=== PATIENT | male | born 1955 | race Two or more races ===

== ENCOUNTER 2021-09-30 05:21 | Inpatient (IN) | payer MEDICAID ==
[2021-09-23 16:46] LABS: PRE OP PROTIME 10.2 SECONDS (9.0-12.0)
[2021-09-23 16:50] LABS: ALBUMIN 3.8 G/DL (3.4-5.0); ALKALINE PHOSPHATASE 130 IU/L (46-116); BASOPHILS % (AUTO) 0.3 % (0-1); BLOOD UREA NITROGEN 15 MG/DL (7-18); BUN/CREATININE RATIO 14.9 (5.4-32.0); CALCIUM 8.9 MG/DL (8.5-10.1); CHLORIDE 105 MMOL/L (99-107); CREATININE 1.01 MG/DL (0.60-1.10); EOSINOPHILS # (AUTO) 0.2 X10'3 (0-0.9); EOSINOPHILS % (AUTO) 3.5 % (0-6); LYMPHOCYTES # (AUTO) 1.9 X10'3 (1.1-4.8); LYMPHOCYTES % (AUTO) 34.9 % (21-51); MEAN CORPUSCULAR HEMOGLOBIN 26.6 PG (27.0-31.0); MEAN CORPUSCULAR HGB CONC 34.1 g/dL (33.0-36.5); MEAN PLATELET VOLUME 7.2 FL (7.4-10.4); MONOCYTES # (AUTO) 0.5 X10'3 (0-0.9); MONOCYTES % (AUTO) 9.4 % (2-12); NEUTROPHILS # (AUTO) 2.8 X10'3 (1.8-7.7); NEUTROPHILS % (AUTO) 51.9 % (42-75); PRE OP ALT 26 U/L (30-65); PRE OP ANION GAP 10 (8-16); PRE OP AST 16 U/L (10-37); PRE OP BILIRUB, TOTAL 0.4 MG/DL (0.0-1.0); PRE OP GLUCOSE 94 MG/DL (70-104); PRE OP HEMATOCRIT 43.3 % (42.0-52.0); PRE OP HEMOGLOBIN 14.8 g/dL (14.0-17.9); PRE OP PLATELET COUNT 221 X10'3 (140-440); PRE OP POTASSIUM 4.4 MMOL/L (3.4-5.1); PRE OP SODIUM 142 MMOL/L (135-145); RED BLOOD COUNT 5.55 X10'6 (4.70-6.10); TOTAL CARBON DIOXIDE 26.8 MMOL/L (24-32); TOTAL PROTEIN 7.6 G/DL (6.4-8.2); eGFR 73 ML/MIN
[2021-09-23 17:10] LABS: HEMOGLOBIN A1C 7.1 % (4.5-6.2)
[~2021-09-30] VITALS: Ht 177.8 cm; Wt 81.6 kg
[2021-09-30] VITALS (17 sets, daily range): BP systolic 115–148; BP diastolic 59–84
[~2021-09-30 05:21] MED LIST: ATOR20TA66 PO; CHOL200074 PO; FLUO10TA PO; LORA10TA7 PO; METF-1203 PO; METO50TA17 PO; ringers solution, lacted 1,000 ML IV SCH
[2021-09-30] MEDS ORDERED: metroNIDAZOLE-Flagyl 500mg/NS 100ml IVPB IV ONE (05:30)
[2021-09-30] MEDS ORDERED: heparin, porcine 5000 units/ml vial SQ ONE (05:30)
[2021-09-30] MEDS ORDERED: DOCUMENT DATE & TIME OF BETA-BLOCKER PO ONE (05:30)
[2021-09-30] MEDS ORDERED: famotidine 20mg tablet PO ONE (05:30)
[2021-09-30] MEDS ORDERED: cefoxitin sod inj 2,000 MG in normal saline 100ml IV soln 100 ML IV ONE (05:30)
[2021-09-30] MEDS ORDERED: BUPIVAcaine/PF 2.5 mg/ml (0.25%) 30ml vial ONE (06:41)
[2021-09-30] MEDS ORDERED: LIDOCAINE 1%/EPI 1:100,000 inj. 10 ML multi-dose vial ONE (06:41)
--- NOTE | 2021-09-30 06:58 | NUR ---
DR. NAJERA NOTIFIED PATIENT'S BG 202 PRE-OPERATIVELY IN PAS UNIT, RECEIVED AN TELEPHONE ORDER FOR INSULIN 5 UNITS SQ. PHARMACY CALLED AND THE MEDICATION ORDERED. Addendum: 09/30/21 at 0743 by Karla Collier RN Amended: Links added.
[2021-09-30] MEDS ORDERED: insulin regular, human 10 units/0.1 ml syringe SQ ONE (07:00)
--- NOTE | 2021-09-30 07:17 | NUR ---
ADMINISTERED INSULIN 5UNITS ON RIGHT ABDOMEN SUBCUTANEOUSLY, ATTEMPTED TO CO-SIGN BY STANFORD GALLARDO BEFORE ADMINISTRATION, BUT THE COMPUTER DID NOT TAKE THE CO-SIGN WITH MULTIPLE ATTEMPTS. DR. NAJERA NOTIFIED AND AWARE THAT THE INSULIN 5 UNITS ADMINISTERED IN PAS UNIT.
[2021-09-30] MEDS ORDERED: BUPIVACAINE liposomal/PF 13.3 MG/ML vial IM ONE (07:30)
[2021-09-30] MEDS ORDERED: midazolam 1 mg/ML 2ml injection ONE (07:31)
[2021-09-30] MEDS ORDERED: fentaNYL /PF 50mcg/ml 5ml ampule ONE (07:31)
[2021-09-30] MEDS ORDERED: LIDOcaine 2% (20mg/ml) 5ml vial ONE (07:35)
[2021-09-30] MEDS ORDERED: propofol inj 20 ML IV ONE (07:35)
[2021-09-30] MEDS ORDERED: rocuronium 10mg/ml inj IV ONE (07:35)
--- NOTE | 2021-09-30 07:36 | NUR ---
INSULIN 5 UNITS SQ CO-SIGNED WITH PJ GALLARDO ON eMAR. Addendum: 09/30/21 at 0742 by Karla Collier RN Amended: Links added.
[2021-09-30] MEDS ORDERED: BUPIVAcaine/PF 7.5mg/ml (0.75%) 10ml vial ONE (07:43)
[2021-09-30] MEDS ORDERED: ondansetron/PF 4mg/2ml inj ONE (08:15)
[2021-09-30] MEDS ORDERED: ePHEDrine 50MG/ML INJ. ONE (08:43)
[2021-09-30] MEDS ORDERED: FLU VACC QS2021-22(6MOS UP)/PF 60 MCG/0.5 ML SYRINGE IM ONE (08:55)
[2021-09-30] MEDS ORDERED: pneumococcal 23-VAL P-sac vacc 25 mcg/0.5ml vial IMVAC ONE (09:00)
[2021-09-30] MEDS ORDERED: ondansetron/PF 4mg/2ml inj IV PRN ×2 (09:40→12:55)
[2021-09-30] MEDS ORDERED: morphine 4 MG/ML inj SYRINge IV PRN (09:40)
[2021-09-30] MEDS ORDERED: proCHLORperazine 10 MG/2 ml inj IV PRN (09:40)
[2021-09-30] MEDS ORDERED: ringers solution, lacted 1,000 ML IV SCH (09:40)
[2021-09-30] MEDS ORDERED: morphine 2 MG/ML inj. syringe IV PRN (09:40)
[2021-09-30] MEDS ORDERED: meperidine/PF 25mg/ml syringe IV PRN ×3 (09:40)
[2021-09-30] MEDS ORDERED: povidone-iodine 10% ointment 1 APPLIC APPLIC TP ONE (09:52)
[2021-09-30] MEDS ORDERED: acetaminophen 1,000mg/100ml IV 100 ML IV ONE (11:35)
--- NOTE | 2021-09-30 11:50 | NUR ---
ADMITTED TO PACU FROM OR ACCOMPANIED BY ANESTHESIA. INTIAL PHYSICAL ASSESSMENT DONE AND RECORDED. REPORT RECEIVED FROM ANESTHESIA. DUE TO LANGUAGE BARRIER, CONDITION AND PAIN STATUS DETERMINED WITH SON CONTINUING EDUCATION DIRECTOR.
[2021-09-30] MEDS ORDERED: naloxone 0.4 mg/ml inj IV PRN (12:55)
[2021-09-30] MEDS ORDERED: dextrose 50%-water 50ml dispensing syringe IV PRN ×2 (12:55)
[2021-09-30] MEDS ORDERED: glucagon, human recombinant 1mg kit SUBCUT PRN (12:55)
[2021-09-30] MEDS ORDERED: insulin Lispro (HumaLOG) vial - multi-dose SQ SCH (12:55)
[2021-09-30] MEDS ORDERED: CADD PCA waste documentation MC PRN (12:55)
[2021-09-30] MEDS ORDERED: dextrose ORAL solution 15 GM/59 ML bottle PO PRN ×2 (12:55)
[2021-09-30] MEDS ORDERED: MESSAGE TO PHARMACY PO ONE (12:55)
[2021-09-30] MEDS: HYDROmorph./NS 0.2 mg/ml CADD 100 ML IV SCH ×6 (13:00→23:00)
--- NOTE | 2021-09-30 13:00 | NUR ---
PACU DISCHARGE CRITERIA MET, REPORT GIVEN TO FLOOR. DENIES PAIN OR DISCOMFORT. PT IS STABLE AND ADEQUATELY RECOVERED FROM ANESTHESIA. PT HAS STABLE AIRWAY PATENCY, RESPIRATORY FUNCTION TO INCLUDE RESPIRATORY RATE AND O2 SAT. HEART RATE, BLOOD PRESSURE STABLE AND HYDRATION ADEQUATE. MENTAL STATUS IS APPROPRIATE. PAIN AND NAUSEA CONTROLLED. REFER TO PACU SPREADSHEET FOR VITAL SIGNS.
--- NOTE | 2021-09-30 13:19 | NUR ---
Patient's pain level currently is 0/10 per son who interpreted my question to the patient. I asked Dr. Medrano about still wanting Dilaudid CADD, he said to me "well, he had a block so he won't have pain yet but lets wait and see. He might still need it later."
--- NOTE | 2021-09-30 13:38 | NUR ---
Paged Dr. Rivera PAGER ID: [phone] MESSAGE: Surgical Cindy RN ext [phone]. RE: Darrick Cook. I was told to page you once this patient arrived to the unit. He is in 348B s/p sigmoid colectomy, parastomal hernia repair, colostomy reversal. Pt is diabetic and hx of HTN
--- NOTE | 2021-09-30 14:13 | NUR ---
Dr. Person seen and examined this patient. Dr. Person said he will be the one in charge of this patient not Dr. Rivera
[2021-09-30] MEDS: ceFOXitin inj 1,000 MG in normal saline 100ml IV soln 100 ML IV SCH ×2 (16:30→23:06)
--- NOTE | 2021-09-30 16:30 | NUR ---
Still no pain at this time
[2021-09-30] MEDS: metroNIDAZOLE-Flagyl 500mg/NS 100 ML IV SCH ×2 (17:33→23:06)
[2021-09-30] MEDS: docusate sod 100mg capsule PO SCH (20:45)
[2021-09-30] MEDS: heparin, porcine 5000 units/ml vial SQ SCH (20:46)
[2021-09-30] MEDS: potassium CL 20mEq in D5-1/2NS 1,000 ML IV SCH (20:50)
[2021-09-30] MEDS: insulin glargine (Lantus) pen - multi-dose SQ SCH (20:50)
[2021-10-01] VITALS: BP 109/58
[2021-10-01] MEDS: HYDROmorph./NS 0.2 mg/ml CADD 100 ML IV SCH ×6 (01:00→10:25)
[2021-10-01] MEDS: potassium CL 20mEq in D5-1/2NS 1,000 ML IV SCH (02:15)
[2021-10-01 05:59] LABS: BASOPHILS % (AUTO) 0.1 % (0-1); EOSINOPHILS % (AUTO) 0.1 % (0-6); HEMATOCRIT 37.8 % (42.0-52.0); HEMOGLOBIN 12.8 g/dl (14.0-17.9); LYMPHOCYTES # (AUTO) 1.1 X10'3 (1.1-4.8); LYMPHOCYTES % (AUTO) 15.1 % (21-51); MEAN CORPUSCULAR HEMOGLOBIN 26.4 PG (27.0-31.0); MEAN CORPUSCULAR HGB CONC 33.8 g/dL (33.0-36.5); MEAN PLATELET VOLUME 7.2 FL (7.4-10.4); MONOCYTES # (AUTO) 0.6 X10'3 (0-0.9); MONOCYTES % (AUTO) 8.1 % (2-12); NEUTROPHILS # (AUTO) 5.5 X10'3 (1.8-7.7); NEUTROPHILS % (AUTO) 76.6 % (42-75); PLATELET COUNT 189 X10'3 (140-440); RED BLOOD COUNT 4.84 X10'6 (4.70-6.10); RED CELL DISTRIBUTION WIDTH 14.8 % (11.5-14.5); WHITE BLOOD COUNT 7.1 X10'3 (4.5-11.0)
[2021-10-01 06:10] LABS: ANION GAP 10 (8-16); BLOOD UREA NITROGEN 12 MG/DL (7-18); BUN/CREATININE RATIO 10.7 (5.4-32.0); CALCIUM 8.1 MG/DL (8.5-10.1); CHLORIDE 108 MMOL/L (99-107); CREATININE 1.12 MG/DL (0.60-1.10); GLUCOSE 153 MG/DL (70-104); POTASSIUM 4.4 MMOL/L (3.5-5.1); SODIUM 143 MMOL/L (135-145); TOTAL CARBON DIOXIDE 25.5 MMOL/L (24-32); eGFR 65 ML/MIN
--- NOTE | 2021-10-01 06:40 | NUR ---
Student documentation: I have reviewed and agree with all interventions, assessments performed and documented by [place] Student Nurse.
--- NOTE | 2021-10-01 06:40 | NUR ---
Problems reprioritized. Patient report given, questions answered & plan of care reviewed with PAULINA Huff.
[2021-10-01 07:37] VITALS: BP 116/64
--- NOTE | 2021-10-01 08:52 | NUR ---
sent message to pharmacy that we are in need of patients 0800 Flagyl IVPB
[2021-10-01] MEDS: cholecalciferol (vitamin D3) 1,000 unit (25mcg) tablet PO SCH (08:59)
[2021-10-01] MEDS: loratadine 10mg tablet PO SCH (08:59)
[2021-10-01] MEDS: docusate sod 100mg capsule PO SCH ×2 (08:59→20:33)
[2021-10-01] MEDS: metoprolol tartrate 50mg tablet PO SCH (09:00)
[2021-10-01] MEDS: FLUoxetine 10mg capsule PO SCH (09:00)
[2021-10-01] MEDS: heparin, porcine 5000 units/ml vial SQ SCH ×2 (09:01→20:34)
[2021-10-01] MEDS: atorvastatin 20mg tablet PO SCH (09:01)
[2021-10-01] MEDS: metroNIDAZOLE-Flagyl 500mg/NS 100 ML IV SCH (10:09)
[2021-10-01 11:00] VITALS: BP 115/62
--- NOTE | 2021-10-01 13:35 | NUR ---
Patient in room [facility] 348. I have received report from Daria GALLARDO and had the opportunity to ask questions and assume patient care.
--- NOTE | 2021-10-01 14:52 | NUR ---
DM consult: Pt with T2DM, well controlled with A1c 7.1%. Written DM education with RD contact information placed in patient's chart. Will remain available. Addendum: 10/01/21 at [address] Amended: Links added.
[2021-10-01] MEDS: simethicone 80mg chew tab PO PRN ×2 (16:36→23:02)
--- NOTE | 2021-10-01 17:29 | NUR ---
Student Medication Administration: For this medication-pass time frame, all medication were reviewed, dispensed, administered and documented per hospital policy by sarina Abraham.
--- NOTE | 2021-10-01 17:29 | NUR ---
Student documentation: I have reviewed and agree with all interventions, assessments performed and documented by Leigh, foreign student adviser teacher.
--- NOTE | 2021-10-01 18:08 | NUR ---
Reported of to Daria RN, Patient in stable condition.
--- NOTE | 2021-10-01 18:50 | NUR ---
Patient in room [facility] 348B. I have received report from PAULINA Huff and had the opportunity to ask questions and assume patient care.
--- NOTE | 2021-10-01 18:51 | NUR ---
Report given to CIARA brock RN
[2021-10-01 20:00] VITALS: BP 123/70
[2021-10-01] MEDS: HYDROcodone/acetaminophen 5mg/325mg tablet PO PRN (20:32)
[2021-10-01] MEDS: psyllium seed 3.4 gm packet PO SCH (20:36)
[2021-10-01] MEDS: insulin glargine (Lantus) pen - multi-dose SQ SCH (20:40)
[2021-10-02] VITALS: BP 136/74
[2021-10-02 06:14] LABS: BASOPHILS % (AUTO) 0.3 % (0-1); EOSINOPHILS # (AUTO) 0.1 X10'3 (0-0.9); EOSINOPHILS % (AUTO) 2.3 % (0-6); HEMATOCRIT 40.3 % (42.0-52.0); HEMOGLOBIN 13.6 g/dl (14.0-17.9); LYMPHOCYTES # (AUTO) 1.3 X10'3 (1.1-4.8); LYMPHOCYTES % (AUTO) 21.2 % (21-51); MEAN CORPUSCULAR HEMOGLOBIN 26.2 PG (27.0-31.0); MEAN CORPUSCULAR HGB CONC 33.8 g/dL (33.0-36.5); MEAN CORPUSCULAR VOLUME 77.3 FL (78-98); MEAN PLATELET VOLUME 7.1 FL (7.4-10.4); MONOCYTES # (AUTO) 0.5 X10'3 (0-0.9); MONOCYTES % (AUTO) 8.3 % (2-12); NEUTROPHILS # (AUTO) 4.3 X10'3 (1.8-7.7); NEUTROPHILS % (AUTO) 67.9 % (42-75); PLATELET COUNT 192 X10'3 (140-440); RED BLOOD COUNT 5.21 X10'6 (4.70-6.10); RED CELL DISTRIBUTION WIDTH 15.3 % (11.5-14.5); WHITE BLOOD COUNT 6.3 X10'3 (4.5-11.0)
[2021-10-02 06:36] LABS: ALBUMIN 3.4 G/DL (3.4-5.0); ANION GAP 12 (8-16); BLOOD UREA NITROGEN 10 MG/DL (7-18); BUN/CREATININE RATIO 9.8 (5.4-32.0); CALCIUM 8.4 MG/DL (8.5-10.1); CHLORIDE 106 MMOL/L (99-107); CREATININE 1.02 MG/DL (0.60-1.10); GLUCOSE 132 MG/DL (70-104); POTASSIUM 3.4 MMOL/L (3.5-5.1); SODIUM 140 MMOL/L (135-145); TOTAL CARBON DIOXIDE 21.6 MMOL/L (24-32); eGFR 73 ML/MIN
--- NOTE | 2021-10-02 06:44 | NUR ---
Problems reprioritized. Patient report given, questions answered & plan of care reviewed with PAULINA Mitchell.
[2021-10-02 07:22] VITALS: BP 151/81
[2021-10-02] MEDS: loratadine 10mg tablet PO SCH (08:13)
[2021-10-02] MEDS: docusate sod 100mg capsule PO SCH ×2 (08:14→19:29)
[2021-10-02] MEDS: atorvastatin 20mg tablet PO SCH (08:15)
[2021-10-02] MEDS: FLUoxetine 10mg capsule PO SCH (08:16)
[2021-10-02] MEDS: metoprolol tartrate 50mg tablet PO SCH (08:16)
[2021-10-02] MEDS: cholecalciferol (vitamin D3) 1,000 unit (25mcg) tablet PO SCH (08:17)
[2021-10-02] MEDS: HYDROcodone/acetaminophen 5mg/325mg tablet PO PRN ×2 (08:18→19:29)
[2021-10-02] MEDS: simethicone 80mg chew tab PO PRN ×2 (08:19→19:30)
[2021-10-02] MEDS: heparin, porcine 5000 units/ml vial SQ SCH ×2 (08:21→19:32)
[2021-10-02 11:00] VITALS: BP 135/72
--- NOTE | 2021-10-02 18:09 | NUR ---
PAGER ID: [phone] MESSAGE: Darrick Cook 348B- Pt requesting Mucinex for chest congestion. Takes it at home when he feels he needs it to break mucus/excrete. Thank you. [phone]
--- NOTE | 2021-10-02 18:30 | NUR ---
Patient in room [facility] 348. I have received report from PAULINA BELLA and had the opportunity to ask questions and assume patient care. Addendum: 10/02/21 at 3 by Khang Emery RN Amended: Links added.
--- NOTE | 2021-10-02 19:00 | NUR ---
HYLTON AT BEDSIDE . ANSWERED QUESTIONS, PT ALERT AND ORIENTED. AMB AD YARED U TO BATHROOM. NADIA [place] CAN UNDERSTAND WRITING. Addendum: 10/02/21 at 1951 by Khang Emery RN Amended: Links added.
[2021-10-02] MEDS: guaiFENesin ER 600mg tablet PO PRN (19:28)
[2021-10-02 19:30] VITALS: BP 120/72
[2021-10-02] MEDS: psyllium seed 3.4 gm packet PO SCH (21:00)
[2021-10-02] MEDS: insulin glargine (Lantus) pen - multi-dose SQ SCH (21:00)
[2021-10-03] VITALS: BP 110/78
[2021-10-03] MEDS: HYDROcodone/acetaminophen 5mg/325mg tablet PO PRN ×2 (05:20→10:07)
[2021-10-03 06:11] LABS: BASOPHILS % (AUTO) 0.2 % (0-1); EOSINOPHILS # (AUTO) 0.1 X10'3 (0-0.9); EOSINOPHILS % (AUTO) 2.7 % (0-6); HEMATOCRIT 40.2 % (42.0-52.0); HEMOGLOBIN 13.5 g/dl (14.0-17.9); LYMPHOCYTES # (AUTO) 1.1 X10'3 (1.1-4.8); LYMPHOCYTES % (AUTO) 21.7 % (21-51); MEAN CORPUSCULAR HEMOGLOBIN 26.1 PG (27.0-31.0); MEAN CORPUSCULAR HGB CONC 33.4 g/dL (33.0-36.5); MEAN PLATELET VOLUME 7.5 FL (7.4-10.4); MONOCYTES # (AUTO) 0.4 X10'3 (0-0.9); MONOCYTES % (AUTO) 8.6 % (2-12); NEUTROPHILS # (AUTO) 3.4 X10'3 (1.8-7.7); NEUTROPHILS % (AUTO) 66.8 % (42-75); PLATELET COUNT 183 X10'3 (140-440); RED BLOOD COUNT 5.16 X10'6 (4.70-6.10); RED CELL DISTRIBUTION WIDTH 15.4 % (11.5-14.5); WHITE BLOOD COUNT 5.1 X10'3 (4.5-11.0)
[2021-10-03 06:18] LABS: ALBUMIN 3.2 G/DL (3.4-5.0); ANION GAP 10 (8-16); BLOOD UREA NITROGEN 9 MG/DL (7-18); BUN/CREATININE RATIO 9.2 (5.4-32.0); CALCIUM 8.4 MG/DL (8.5-10.1); CHLORIDE 107 MMOL/L (99-107); CREATININE 0.98 MG/DL (0.60-1.10); GLUCOSE 133 MG/DL (70-104); POTASSIUM 3.3 MMOL/L (3.5-5.1); SODIUM 141 MMOL/L (135-145); TOTAL CARBON DIOXIDE 24.3 MMOL/L (24-32); eGFR 76 ML/MIN
[2021-10-03] MEDS: guaiFENesin ER 600mg tablet PO PRN (06:40)
--- NOTE | 2021-10-03 06:41 | NUR ---
Problems reprioritized. Patient report given, questions answered & plan of care reviewed with PAULINA Mitchell. Addendum: 10/03/21 at 0641 by Khang Emery RN Amended: Links added.
[2021-10-03 07:00] VITALS: BP 136/87
[2021-10-03] MEDS: loratadine 10mg tablet PO SCH (07:51)
[2021-10-03] MEDS: FLUoxetine 10mg capsule PO SCH (07:51)
[2021-10-03] MEDS: cholecalciferol (vitamin D3) 1,000 unit (25mcg) tablet PO SCH (07:54)
[2021-10-03] MEDS: docusate sod 100mg capsule PO SCH (07:55)
[2021-10-03 07:57] VITALS: BP_SYST 136
[2021-10-03] MEDS: atorvastatin 20mg tablet PO SCH (07:57)
[2021-10-03] MEDS: metoprolol tartrate 50mg tablet PO SCH (07:57)
[2021-10-03] MEDS: heparin, porcine 5000 units/ml vial SQ SCH (07:58)
--- NOTE | 2021-10-03 08:00 | NUR ---
Patient in room [facility] 348. I have received report from Priscilla GALLARDO and had the opportunity to ask questions and assume patient care.
[2021-10-03] MEDS ORDERED: potassium Cl 20 mEq SR tablet PO STA (11:03)
--- NOTE | 2021-10-03 11:43 | NUR ---
promotional table spacer PAGER ID: [phone] MESSAGE: Darrick Cook 348B- Pt is ready to go but needs pain meds. Dr. Starr wants you to please give him some. He will see Dr. Starr in 1 week. He will wait for a script or if you could call it in to his pharmacy. Thank you [facility] [phone]
[2021-10-03] MEDS ORDERED: HYDR-3965 PO (11:51)
[2021-10-03] MEDS ORDERED: ACET-1008 PO (11:53)
--- NOTE | 2021-10-03 12:00 | NUR ---
Pt DC to home, Pt and son verbalize understanding of all DC orders and understands the importance of following up with Dr. Starr in 1 week. Pt Speaks only Herminia/erna son at bed side translated all instructions. Pt asking for pain meds, Dr Melendez was able to call in meds. Pt's son able to teach back DC orders and instructions of what to look for in case of infection or other S&S of distress. pt wheeled to the front where son took him home to [place].
== END 2021-10-03 12:00 | disposition home or self-care (01) | DRG 231 ==
LOC: UNDOADMIN 05:21 → PAS IN 05:21 → SUR 3N 13:43
PROVIDERS: ADMIT Colon & Rectal Surgery; ATTEND Colon & Rectal Surgery
PROC: 0WQF4ZZ Repair Abdominal Wall, Percutaneous Endoscopic Approach (ICD-10-PCS; 2021-09-30)
PROC: 3E0T3BZ Introduction of Anesthetic Agent into Peripheral Nerves and Plexi, Percutaneous Approach (ICD-10-PCS; 2021-09-30)
PROC: 0DBN4ZZ Excision of Sigmoid Colon, Percutaneous Endoscopic Approach (ICD-10-PCS; principal; 2021-09-30 07:22)
DX: K43.5 Parastomal hernia without obstruction or gangrene (principal); Z43.3 Encounter for attention to colostomy; E11.9 Type 2 diabetes mellitus without complications; F32.A Depression, unspecified; Z20.822 Contact with and (suspected) exposure to COVID-19; I10 Essential (primary) hypertension; E78.5 Hyperlipidemia, unspecified; Z79.899 Other long term (current) drug therapy
CPT/HCPCS: 36415; 80048; 80053; 82948; 83036; 85025; 85610; 85730; 86885; 86900; 86901; 87081; 90732; 93005; A4338; A4355; A4402; A4618; A6449; A7000; C1758; C9290; G0378; J0131; J0694; J1170; J1644; J1815; J2001; J2250; J2405; J2704; J3010; J3480; J3490; J7030; J7120; U0003; U0005